=== PATIENT | male | born 1975 | race Caucasian/White ===

== ENCOUNTER 2023-04-11 14:08 | Emergency (ER) | payer SELFPAY ==
[~2023-04-11] VITALS: Ht 165.1 cm; Wt 71.7 kg
[2023-04-11 14:17] VITALS: BP 133/86; PULSE 118; RESP 32; TEMP 98; O2SAT 93
[2023-04-11] MEDS ORDERED: methylPREDNISolone SS 125 MG/2 ML VIAL IVP ONE (14:20)
[2023-04-11] MEDS ORDERED: ALBUTEROL SULFATE/IPRATROPIU 3 ML SOL IH ONE ×3 (14:20→15:45)
[2023-04-11 14:23] VITALS: PULSE 119; RESP 32; O2SAT 93
[2023-04-11 14:30] VITALS: O2SAT 93
[2023-04-11] MEDS ORDERED: NACL 0.9% 1,000 ML IV ONE (14:35)
[2023-04-11] MEDS ORDERED: LORazepam 2 MG/ML VIAL IVP ONE (14:40)
[2023-04-11 15:49] VITALS: PULSE 114; RESP 25; O2SAT 95
[2023-04-11] MEDS ORDERED: ALBU0.0912 INH (15:51)
[2023-04-11] MEDS ORDERED: PRED20TA5 PO (15:51)
[2023-04-11 17:00] VITALS: BP 132/82; PULSE 88; RESP 25; TEMP 98; O2SAT 98
== END 2023-04-11 17:00 | disposition home or self-care (01) ==
LOC: MED 14:08
DX: J45.901 Unspecified asthma with (acute) exacerbation (principal); Z20.822 Contact with and (suspected) exposure to COVID-19; Z79.899 Other long term (current) drug therapy
CPT/HCPCS: 71045; 87426; 94640; 96361; 96374; 96375; 99285; J2060; J2930; J7030; Q0092